=== PATIENT | female | born 1945 | race Caucasian/White ===

== ENCOUNTER → 2016-10-14 | Day surgery (SDC) | payer OTHER ==
[2016-09-16 12:25] VITALS: Ht 160 cm; Wt 84.1 kg
[~2016-10-14] VITALS: Ht 160 cm; Wt 84.1 kg
[~2016-10-14] MED LIST: GLC/500 PO; LACTATED RINGER'S 1000ML 500 ML IV SCH; LIDOCAINE 3.5% OPH GEL PER APPLICATION CHARGE OPR SCH; LIDOCAINE 4% OP SOLN DROP CHARGE OPR SCH; LISI40TA PO; MOXIFLOXACIN OPH SOLN PER DROP CHARGE OPR SCH; NIFE60TA PO; POTA1CAP53 PO; PROPARACAINE 0.5% OP SOLN PER DROP CHARGE OPR SCH
== END | disposition home or self-care (01) ==
LOC: EDSTATUS 10:00 → C.PAT 12:53
PROVIDERS: ATTEND Ophthalmology
DX: H26.9 Unspecified cataract (principal)

== ENCOUNTER → 2016-12-10 | Outpatient (CLI) | payer OTHER ==
[~2016-12-10] MED LIST changes: -LACTATED RINGER'S 1000ML 500 ML IV SCH; -LIDOCAINE 3.5% OPH GEL PER APPLICATION CHARGE OPR SCH; -LIDOCAINE 4% OP SOLN DROP CHARGE OPR SCH; -MOXIFLOXACIN OPH SOLN PER DROP CHARGE OPR SCH; -PROPARACAINE 0.5% OP SOLN PER DROP CHARGE OPR SCH
--- NOTE | 2016-12-10 10:45 | DIAGNOSTIC IMAGING REPORT ---
MRI LEFT SHOULDER NO CONTRAST CLINICAL HISTORY: LEFT SHOULDER PAIN COMPARISON STUDY: No previous studies for comparison. FINDINGS: Imaging was performed in sagittal, axial, and coronal planes. There is mild infraspinatus and supraspinatus tendinopathy. There is no evidence for full-thickness rotator cuff tear. There are degenerative changes in the AC joint. There are no areas of marrow replacement to indicate neoplasm or occult fracture. The bicipital tendon appears intact. There is no tendon subluxation. There are degenerative signal changes present within the glenoid labrum. No discrete tears are visualized. IMPRESSION: 1. No evidence of occult fracture 2. No evidence of rotator cuff tear. Mild rotator cuff tendinopathy. 3. 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 Electronically signed by: Adrien Bah M.D. 12/10/2016 10:43 AM Dictated Date/Time: 12/10/2016 10:36 AM
== END | disposition home or self-care (01) ==
LOC: C.MRIBC 09:19
PROVIDERS: ATTEND Orthopaedic Surgery
DX: M25.512 Pain in left shoulder (principal)

== ENCOUNTER → 2017-09-29 | Outpatient (CLI) | payer OTHER | END | disposition home or self-care (01) | LOC: C.PATHSPEC 17:46 | PROVIDERS: ATTEND Dentist Oral and Maxillofacial Surgery | DX: K09.0 Developmental odontogenic cysts (principal) ==